=== PATIENT | female | born 1955 | race Caucasian/White ===

== ENCOUNTER 2016-07-15 22:43 | Emergency (ER) | payer BC, OTHER ==
[2016-07-15 22:50] VITALS: BP 158/78; PULSE 88; TEMP 98.3; BMI 22.3
[2016-07-15 23:20] LABS: MPV 8.4 fL (7.4-10.4)
[2016-07-15 23:27] LABS: PARTIAL THROMB. TIME 26.3 SEC (22-35)
[2016-07-15 23:31] LABS: BLOOD UREA NITROGEN 19 MG/DL (7-17); CALCIUM 9.7 MG/DL (8.4-10.2); CALCULATED OSMOLALITY 273 MOs/Kg (270-290); CHLORIDE 102 mEq/L (98-107); GLUCOSE 100 MG/DL (70-99); SODIUM LEVEL 141 mEq/L (137-146); TOTAL PROTEIN 7.6 G/DL (6.3-8.2)
[2016-07-15 23:32] LABS: LEUKOCYTES/URINE 2+ (NEGATIVE); NITRITE/URINE NEG (NEGATIVE); RBC/URINE 0-2 (0-5); URINE OCCULT BLOOD NEG (NEG/TRACE)
--- NOTE | 2016-07-15 23:54 | EDPRACDOC ---
- General Information Chief Complaint: Generalized Weakness Stated Complaint: TONGUE NUMBNESS & PALPITATIONS Time Seen by Provider: 07/15/16 23:49 Information Source: Patient Mode of Arrival: Car Home Medications: Home Medications Atorvastatin Calcium [Lipitor] 10 mg PO DAILY 08/23/14 Levothyroxine [Synthroid, Levoxyl] 112 mcg PO DAILY 01/01/16 Bupropion HCl [Bupropion Xl] 150 mg PO DAILY 01/26/16 Omeprazole 20 mg PO DAILY #30 tablet. 01/26/16 Phentermine HCl [Adipex-P] 37.5 mg PO DAILY 01/26/16 Hydrocodone Bit/Acetaminophen [Hydrocodon-Acetaminophen 5-325] 1 tab PO Q4H PRN #10 tab 07/16/16 Prednisone [Deltasone, Orasone] 10 mg PO DAILY #39 tablet 07/16/16 Allergies/Adverse Reactions: Allergies Allergy/AdvReac Type Severity Reaction Status Date / Time Penicillins Allergy Unknown Verified 01/26/16 00:27 - History of Present Illness Onset: one week HPI: THURSDAY A WEEK AGO (June). PT DID A FLIP ON A BAR. LANDED ON FEET. SINCE THEN HAS HAD PAIN IN BACK OF NECK, SOME RIGHT ARM NUMBNESS (INTERMITTENT. ). BACK OF TONGUE FEELS LIKE SOMETHING IS PULLING IT BACKWARD. (STARTED THURSDAY). BLOOD PRESSURE HIGHER THAN USUAL. HAVING CHEST PAIN TONIGHT AND TROUBLE SWALLOWING. NECK PAIN CURRENTLY 8/10. TRYING HEAT AND MOTRIN. ALSO SOME MENTAL (CHIN) TINGLING. REPORTS NO SLURRED SPEECH. DRY MOUTH. ( HAS BEEN FLEXERIL WELL). PT FEELING OVERWHELMED AT WORK THIS WEEK. ED Past Medical History - Patient Medical History Cardiac History: Reports: Hypercholesterolemia. Denies: Coronary Artery Disease , Hypertension Psychological History: Reports: Anxiety. Denies: Depression, Substance Use Disorder Systemic History: Reports: Hyperthyroidism, Hypothyroidism (Following radioactive iodine ablation of hyperactive thyroid.) Surgical History: Reports: Hernia Surgery (umbilical), Tonsillectomy/ Adnoidectomy. Denies: Hysterectomy - Family Medical History Reports: Hypertension (mother and father), Cancer (father-lung), Stroke (father- tia), Cardiac Disorders (father-cad (in his 60s) and CABG). Denies: Diabetes - Social Medical History Smoking Status: Never smoker Social History: Denies: Substance Use Disorder EDM Review of Systems - Review of Systems ROS Negative Except as Marked: Yes All systems reviewed and were negative except as marked Constitutional: No Symptoms Reported Eyes: No Symptoms Reported Ears: No Symptoms Reported Nose: No Symptoms Reported Respiratory: No Symptoms Reported Cardiovascular: Other (FELT LIKE HEARTBURN THIS EVENING) Gastrointestinal: No Symptoms Reported Genitourinary: No Symptoms Reported Integumentary: No Symptoms Reported Allergic/Immunologic: No Symptoms Reported - Physical Exam Constitutional: Alert (Awake), No apparent distress Oriented to: Time, Person, Place Last recorded Vital Signs: Last Vital Signs Temp 98.3 F 07/15/16 22:45 Pulse 88 07/15/16 22:45 Resp 20 07/15/16 22:45 BP 158/78 07/15/16 22:45 Pulse Ox 97 07/15/16 22:45 Oxygen Pulse Oxygen Saturation 97 O2 Device Room Air Oxygen Flow Rate Fraction of Inspired Oxygen ( FIO2) - HEENT Head: Normal ( normocephalic) Eye Exam: Normal (PERRL, EOMI, Sclera white) Oropharynx: Normal (Pharynx:Moist without exudate,Gums-no swelling) Nose: No Symptoms Reported (septum midline) Neck: Normal (FROM, trachea at midline) - Respiratory/Cardiovascular Respiratory: Normal - CTA (BBS clear to auscultation without adventitious sounds ) Cardiovascular: Normal (RRR without murmur, gallop or rub) - GI Auscultation: Normal (NABS) Palpation: Normal (Soft,No rebound or guarding, non distended) Tenderness: Non tender Felix's Sign: Negative - Musculoskeletal Back: Normal (Non-Tender) Extremities: Normal (Normal tone, Pulses 2+ No cyanosis or edema, FROM) - Integumentary Skin: Normal, Warm, Dry Lymphatics: Normal (no adenopathy) - Neurologic Memory Impaired: Normal Motor Function: Normal (Normal tone, Pulses 2+ No cyanosis or edema, FROM) Cranial Nerve: Normal (CN II-X11 intact sensation, strength 5/5) Cerebellar: Normal Mood Description: Normal Perception: Normal - Results 07/15/16 23:00 07/15/16 23:00 WBC 7.3 xk/uL (3.8-10.8) 07/15/16 23:00 RBC 4.65 xM/uL (4.20-5.40) 07/15/16 23:00 Hgb 13.8 g/dL (12.0-16.0) 07/15/16: Hct 41.4 % (36-47) 07/15/16: MCV 89 fL (81-99) 07/15/16 23:00 MCH 29.8 pg (27-32) 07/15/16: MCHC 33.5 g/dl (33-36) 07/15/16: RDW 13.4 % (11.5-14.5) 07/15/16: Plt Count 195 xk/uL (130-400) 07/15/16: MPV 8.4 fL (7.4-10.4) 07/15/16: PT 10.6 SEC (9.2-11.2) 07/15/16: INR 1.0 07/15/16: APTT 26.3 SEC (22-35) 07/15/16: Sodium 141 mEq/L (137-146) 07/15/16 23:00 Potassium 3.6 mEq/L (3.5-5.1) 07/15/16:00 Chloride 102 mEq/L (98-107) 07/15/16: Carbon Dioxide 28 mMOL/L (22-33) 07/15/16: Anion Gap 15 mEq/L (8-16) 07/15/16 23:00 BUN 19 MG/DL (7-17) H 07/15/16:00 Creatinine 0.90 MG/DL (0.52-1.04) 07/15/16 23:00 Estimated GFR (MDRD) > 60 mL/min (>=60) 07/15/16 23:00 Glucose 100 MG/DL (70-99) H 07/15/16:00 Calculated Osmolality 273 MOs/Kg (270-290) 07/15/16: Calcium 9.7 MG/DL (8.4-10.2) 07/15/16 23:00 Total Bilirubin 0.4 MG/DL (0.2-1.3) 07/15/16: AST 30 IU/L (14-36) 07/15/16:00 ALT 33 IU/L (9-52) 07/15/16 23:00 Alkaline Phosphatase 81 IU/L (38-126) 07/15/16 23:00 Troponin I 0.01 ng/mL (<.04) 07/15/16 23:00 Spj-U-Udgejmozmmq Pept 50 pg/mL (0-900) 07/15/16 23:00 Total Protein 7.6 G/DL (6.3-8.2) 07/15/16 23:00 Albumin 4.4 G/DL (3.5-5.0) 07/15/16 23:00 Urine Color Yellow 07/15/16 23:00 Urine Clarity Sl cldy 07/15/16 23:00 Urine pH 6.0 (5.0-8.0) 07/15/16 23:00 Ur Specific [place] 1.010 (1.003-1.035) 07/15/16 23:00 Urine Protein Neg (NEG/TRACE) 07/15/16 23:00 Urine Glucose (UA) Neg (NEGATIVE) 07/15/16 23:00 Urine Ketones Neg (NEGATIVE) 07/15/16 23:00 Urine Occult Blood Neg (NEG/TRACE) 07/15/16 23:00 Urine Nitrite Neg (NEGATIVE) 07/15/16 23:00 Urine Bilirubin Neg (NEGATIVE) 07/15/16 23:00 Urine Urobilinogen <2.0 MG/DL (0-1) 07/15/16 23:00 Ur Leukocyte Esterase 2+ (NEGATIVE) H 07/15/16 23:00 Urine RBC 0-2 (0-5) 07/15/16 23:00 Urine WBC 10-20 (0-5) H 07/15/16 23:00 Ur Epithelial Cells 3+ 07/15/16 23:00 Urine Bacteria Few (NEG/FEW) 07/15/16 23:00 Lab Results 07/15/16 07/15/16 07/15/16 23:00 23:00 23:00 WBC 7.3 RBC 4.65 Hgb 13.8 Hct 41.4 MCV 89 MCH 29.8 MCHC 33.5 RDW 13.4 Plt Count 195 MPV 8.4 PT 10.6 INR 1.0 APTT 26.3 Sodium Potassium Chloride Carbon Dioxide Anion Gap BUN Creatinine Estimated GFR (MDRD) Glucose Calculated Osmolality Calcium Total Bilirubin AST ALT Alkaline Phosphatase Troponin I Xyb-[id number]-Muwdholmmkm Pept Total Protein Albumin Urine Color Yellow Urine Clarity Sl cldy Urine pH 6.0 Ur Specific [place] 1.010 Urine Protein Neg Urine Glucose (UA) Neg Urine Ketones Neg Urine Occult Blood Neg Urine Nitrite Neg Urine Bilirubin Neg Urine Urobilinogen <2.0 Ur Leukocyte Esterase 2+ H Urine RBC 0-2 Urine WBC 10-20 H Ur Epithelial Cells 3+ Urine Bacteria Few 07/15/16 23:00 WBC RBC Hgb Hct MCV MCH MCHC RDW Plt Count MPV PT INR APTT Sodium 141 Potassium 3.6 Chloride 102 Carbon Dioxide 28 Anion Gap 15 BUN 19 H Creatinine 0.90 Estimated GFR (MDRD) > 60 Glucose 100 H Calculated Osmolality 273 Calcium 9.7 Total Bilirubin 0.4 AST 30 ALT 33 Alkaline Phosphatase 81 Troponin I 0.01 Ggz-M-Lbsjmzgkcmr Pept 50 Total Protein 7.6 Albumin 4.4 Urine Color Urine Clarity Urine pH Ur Specific [place] Urine Protein Urine Glucose (UA) Urine Ketones Urine Occult Blood Urine Nitrite Urine Bilirubin Urine Urobilinogen Ur Leukocyte Esterase Urine RBC Urine WBC Ur Epithelial Cells Urine Bacteria - EKG EKG #1 EKG Time: 22:55 -: Yes EKG interpreted by me Rate: bpm: 88 [place]: Normal Rhythm: NSR Block: None Hypertrophy: None ST: Normal Comments: NORMAL EKG Decision Time to Discharge: 02:51 - Departure Yes I personally saw and evaluated the patient. Disposition: Home Condition: Stable Final Diagnosis: Cervical radiculopathy due to degenerative joint disease of spine Cervical spine degeneration Qualifiers: Spinal osteoarthritis complication: with radiculopathy Qualified Code(s): M47.22 - Other spondylosis with radiculopathy, cervical region Instructions: Weakness (ED) Education/Counseling Given To: Patient, Family Member Education/Counseling Given Regarding: Diagnosis, Treatment Referrals: None,No Provider [Primary Care Provider] - One Week Prescriptions: New Hydrocodone Bit/Acetaminophen [Hydrocodon-Acetaminophen 5-325] 1 tab PO Q4H PRN #10 tab PRN Reason: Pain Prednisone [Deltasone, Orasone] 10 mg PO DAILY #39 tablet No Action Atorvastatin Calcium [Lipitor] 10 mg PO DAILY Levothyroxine [Synthroid, Levoxyl] 112 mcg PO DAILY Phentermine HCl [Adipex-P] 37.5 mg PO DAILY Bupropion HCl [Bupropion Xl] 150 mg PO DAILY Omeprazole 20 mg PO DAILY #30 tablet.dr Forms: Excuse Note Additional Instructions: POSSIBLE MRI IN THE FUTURE IF SYMPTOMS PERSIST OR WORSEN.
[2016-07-16 00:18] LABS: SEG NEUTROPHIL 22 % (45-76)
--- NOTE | 2016-07-16 01:33 | DIRPT ---
CLINICAL DATA: Neck pain after "flipping at gymnastics place" with granddaughter 2 weeks prior. Intermittent right arm tingling. EXAM: CT HEAD WITHOUT CONTRAST CT CERVICAL SPINE WITHOUT CONTRAST TECHNIQUE: Multidetector CT imaging of the head and cervical spine was performed following the standard protocol without intravenous contrast. Multiplanar CT image reconstructions of the cervical spine were also generated. COMPARISON: None. FINDINGS: CT HEAD FINDINGS No intracranial hemorrhage, mass effect, or midline shift. No hydrocephalus. The basilar cisterns are patent. No evidence of territorial infarct. Mild generalized atrophy and minimal chronic small vessel ischemia. No intracranial fluid collection. Calvarium is intact. Included paranasal sinuses and mastoid air cells are well aerated. CT CERVICAL SPINE FINDINGS Cervical spine alignment is maintained. Vertebral body heights are preserved. There is no fracture. The dens is intact. There are no jumped or perched facets. Disc space narrowing at C4-C5 and C5-C6 with associated endplate spurring. No prevertebral soft tissue edema. Biapical pleural parenchymal scarring at the lung apices. IMPRESSION: 1. No acute intracranial abnormality. 2. Mild degenerative disc disease in the midcervical spine without acute fracture or subluxation. Electronically Signed By: Zainab Lama M.D. On: 07/16/2016 01:30
--- NOTE | 2016-07-16 02:36 | DIRPT ---
CLINICAL DATA: Neck pain. Weakness. EXAM: PORTABLE CHEST 1 VIEW COMPARISON: 01/26/2016 FINDINGS: Normal heart size and mediastinal contours when accounting for distortion by dextroscoliosis. There is no edema, consolidation, effusion, or pneumothorax. IMPRESSION: No active disease. Electronically Signed By: Mookie Glaser M.D. On: 07/16/2016 02:33
== END 2016-07-16 02:56 | disposition home or self-care (01) ==
LOC: ED 22:43
DX: M47.22 Other spondylosis with radiculopathy, cervical region (principal)
CPT/HCPCS: 36415; 70450; 71010; 72125; 80053; 81001; 83880; 84484; 85007; 85027; 85610; 85730; 87086; 93005; 99283